=== PATIENT | female | born 1990 | race Two or more races ===

== ENCOUNTER 2024-01-25 17:38 | Emergency (ER) | payer MEDICAID, SELFPAY ==
[2024-01-25 19:11] VITALS: BP 110/61; PULSE 75; RESP 19; TEMP 37.2; O2SAT 100
--- NOTE | 2024-01-25 19:15 | XR_ITS ---
Examination: OB Transvaginal ultrasound of the pelvis, complete Technique: Transvaginal sonographic images pelvis performed using yoon scale imaging Exam date and time: January 25, 2024 1929 hrs. Indications: Pelvic pain and vaginal bleeding onset today Findings: Uterus 6.1 x 5.2 x 5.9 cm retroverted pole 0.7 cm corresponds to 6 weeks 4 days gestational age Small subchorionic hemorrhage 5 x 2 x 5 mm Right ovary obscured by bowel gas Left ovary 3.1 x 1.4 x 1.8 cm arterial flow Impression: Viable intrauterine gestation 6 weeks 4 days Cardiac motion 147 BPM
--- NOTE | 2024-01-25 19:15 | PD.EDRME ---
Rapid Medical Screening Exam E Arrival date/time: 01/25/24 17:38 33F at approximately 6 weeks and with no significant PMH presents to ED with 2 days of pelvic pain and vaginal spotting. Chief Complaint: Vaginal Bleeding
[2024-01-25 20:18] LABS: Basophils # (Auto) 0.1 Thou/mm3 (0.0-0.2); Basophils % (Auto) 1 % (0-2.5); Eosinophils # (Auto) 0.1 Thou/mm3 (0.0-0.5); Eosinophils % (Auto) 1 % (0-10); Hematocrit 38.8 % (36.0-46.0); Hemoglobin 13.3 g/dL (12.0-16.0); Immature Granulocytes % (Auto) 0 % (0-0); Immature Granulocytes Auto 0.03 Thou/mm3 (0.00-0.00); Lymphocytes # (Auto) 2.3 Thou/mm3 (1.0-4.8); Lymphocytes % (Auto) 21 % (10-50); Mean Corpuscular HGB Conc 34.3 g/dl (31.0-37.0); Mean Corpuscular Hemoglobin 29.2 pg (25.0-35.0); Mean Corpuscular Volume 85 fL (80-100); Monocytes # (Auto) 0.9 Thou/mm3 (0.0-0.8); Monocytes % (Auto) 8 % (0-12); Neutrophils # (Auto) 7.6 Thou/mm3 (1.8-7.7); Neutrophils % (Auto) 69 % (37-80); Nucleated Red Blood Cell % 0 /100 WBC (0); Platelet Count 208 Thou/mm3 (140-440); RDW Standard Deviation 42.1 fL (36.4-46.3); Red Blood Count 4.55 Miln/mm3 (4.00-5.20); White Blood Count 10.9 Thou/mm3 (3.6-11.0)
[2024-01-25 20:53] LABS: Alanine Aminotransferase 9 U/L (10-49); Albumin, Serum 4.5 gm/dL (3.5-5.0); Albumin/Globulin Ratio 1.5 (1.2-2.2); Alkaline Phosphatase 74 U/L (46-116); Anion Gap 7 (7-16); Aspartate Amino Transferase 13 U/L (0-34); BUN/Creatinine Ratio 17 Ratio (12-20); Bilirubin,Total 0.3 mg/dL (0.3-1.2); Blood Urea Nitrogen 12 mg/dL (9-23); Calcium 9.6 mg/dL (8.3-10.6); Calcium (Corrected) 9.6 mg/dL (8.5-10.1); Carbon Dioxide 23.4 mMol/L (20.0-31.0); Chloride 105 mMol/L (98-107); Creatinine (Component) 0.7 mg/dL (0.6-1.3); Globulin 3.1 gm/dL (2.3-3.5); Glucose 91 mg/dL (74-106); Osmolality,Calculated 269 (275-295); Potassium 3.9 mMol/L (3.4-5.1); Sodium 135 mMol/L (136-145); Total Protein 7.6 gm/dL (5.7-8.2); eGFR > 60 See Note
[2024-01-25 21:26] LABS: Beta HCG,Quantitative 77303 mIU/mL (<5.0)
--- NOTE | 2024-01-25 22:08 | PD.EDVAGBL ---
ED OB Contraction Preg RMI/HPI General Chief complaint: Vaginal Bleeding Stated complaint: 6 WKS SMALL AMOUNT OF BLOOD Arrival date/time: 01/25/24 17:38 RME / HPI RME / HPI Narrative: 01/25/24 17:38 33F and her 6-week of presented to the ED due to scant vaginal bleeding. Patient reported that she only had changed 1 pad. She reported that there was no clots however there was cannot whitish vaginal discharge with no abdominal pain or itching. Patient reported that she has flulike symptoms and she has mild fever. Patient reported that she has not seen a commissioned fire officer at this time and she was not aware of her blood type. Patient denied any contractions, denied any abdominal trauma, nausea or vomiting, and urinary tract symptoms. Related Data Allergies Allergy/AdvReac Type Severity Reaction Status Date / Time No Known Allergies Allergy Verified 01/25/24 17:42 ED Exam Narrative Physical exam: GEN: AOx3, able to speak full sentences HEENT: NC/AC, PERRLA, oral mucosa moist, neck supple CVS: RRR, S1-S2 present, no murmurs appreciated RESP: CTAB GI: soft,non distended, non tender, NBS MSK: able to move all 4 limbs, no lower extremity edema SKIN: warm and dry ACCESS REPRESENTATIVE: CN II-XII and Sensation grossly intact. Course Quality Measures none Orders Category Date Time Status Administer Rhogam NOW Care 01/25/24 21:51 Active US OB transvaginal Stat Exams 01/25/24 19:15 Completed Beta HCG,Quantitative Stat Lab 01/25/24 20:10 Completed CBC Stat Lab 01/25/24 20:10 Completed CMP [Comprehensive Metabolic Panel] Stat Lab 01/25/24 20:10 Completed RHOGAM [Rho(D) Immune Globulin] Stat Lab 01/25/24 20:10 Completed Type and Screen Stat Lab 01/25/24 20:10 Completed UA [Urinalysis] Stat Lab 01/25/24 22:30 Completed Urine Culture Stat Lab 01/25/24 22:30 Received Vital Signs Vital signs: Vital Signs Temperature 98.9 F 01/25/24 19:11 Pulse Rate 75 01/25/24 19:11 Respiratory Rate 19 01/25/24 19:11 Blood Pressure 110/61 01/25/24 19:11 Pulse Oximetry (%) 100 01/25/24 19:11 Oxygen Delivery Method Room Air 01/25/24 19:11 Vaginal Bleeding MDM Narrative MDM Narrative: And evaluation patient was found to have pulse rate of 75, blood pressure stable of 117/74, hemoglobin level of 13.3, hematocrit of 38.8, chemistry was within normal limits, quantitative beta-hCG was 77,003, blood type was found to be O-. For that reason we decided to give the patient a dose of RhoGAM and discharge the patient to follow-up with her primary care physician and to follow-up with her commissioned fire officer. Patient reported this is her second she had similar symptoms in the past in which it was treated conservatively and she was not admitted to the hospital or stay overnight. Vaginal US Small subchorionic hemorrhage 5 x 2 x 5 mm Viable intrauterine gestation 6 weeks 4 days Cardiac motion 147 BPM Patient data External records reviewed:: [facility] previous records Clinical information provided by:: patient Social determinants that could affect healthcare access:: none Patient has the following chronic illnesses:: None How is presenting disease/condition affected by chronic disease/condition?: no chronic disease Evaluation data The following diagnostics were reviewed and interpreted by me:: lab results, radiology exam(s) and EKG tracing(s) Lab and/or radiology exams considered but not ordered:: None Interpretation Summary: Subchrionic Vaginal bleed Medications / Prescriptions Medications or Prescriptions considered but not ordered:: None Medication administrations:: RhoGam Consultations Consultation(s) initiated? (list below): No Diagnosis Vaginal Bleeding Differential Diagnosis: vaginal bleeding Most likely diagnosis given after review of the tests above:: Subchorionic hematoma Admission Indicated Admission indicated?: not indicated Admission Request Was there a request for admission?: No Disposition Plan Disposition Plan: Discharge Discharge Attestation Discharge Attestation: The patient and all family members were given an opportunity to ask questions and understood the discharge instructions. Discharge instructions specifically effects, indications for sooner follow up or return to the emergency department, and the expected course of current diagnosis. 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 Use Tylenol 4 times 325mg a day as needed for mild pain and mild fever. Prescriptions/Referrals Referrals: Freddie Long MD [Primary Care Provider] - In 1 week Problem List Clinical Impression: Vaginal bleeding, Subchorionic hematoma in first trimester Patient/Caregiver Discharge Instructions Print Language: Bulgarian Stand Alone Forms: Birgit Award Info., Patient Portal Info Letter
[2024-01-25 22:51] LABS: Collection Type, Urine Clean Catch; RBC,Urine 0 /hpf (0-3); WBC,Urine 0 /hpf (0-5)
[2024-01-25 23:03] LABS: Bacteria,Urine Rare; Bilirubin,Urine Negative (Negative); Blood,Urine Negative (Negative); Clarity,Urine Clear (Clear/Hazy); Color,Urine Lt-Yellow (Lt Yel-Yel); Glucose, Urine Negative (Negative); Ketones,Urine Negative (Negative); Leukocyte Esterase,Urine Negative (Negative); Nitrite,Urine Negative (Negative); PH,Urine 6.5 (5.0-7.0); Protein,Urine Negative (Neg - Trace); Specific Gravity,Urine 1.015 (1.001-1.035); Squamous Epithelial Cell,Urine 3 /hpf (0-5); Urobilinogen,Urine Negative mg/dL (0.0-1.0)
[2024-01-26 00:40] VITALS: BMI 22.3
[2024-01-26 00:48] VITALS: BP 103/69; PULSE 76; RESP 18; TEMP 36.8; O2SAT 100
[2024-01-26 00:55] VITALS: BP 103/69; PULSE 77; RESP 17; O2SAT 100
[2024-01-26 00:58] VITALS: BP 104/70; PULSE 78; RESP 16; TEMP 36.8; O2SAT 99
== END 2024-01-26 00:59 | disposition home or self-care (01) ==
PROVIDERS: Physician Assistant; Emergency Provider Emergency Medicine; PCP Family Medicine
DX: O20.8 Other hemorrhage in early pregnancy (principal); Z3A.01 Less than 8 weeks gestation of pregnancy
CPT/HCPCS: 36415; 36430; 76817; 80053; 81001; 84702; 85025; 86850; 86900; 86901; 87086; 96372; 99285; J2790